=== PATIENT | female | born 1995 | race Caucasian/White ===

== ENCOUNTER 2021-01-02 03:25 | Inpatient (IN) ==
[~2021-01-02 03:25] MED LIST: Azithromycin 500 MG in 0.9 % Sodium Chloride 250 ML IVPB PRN; Famotidine 20 MG/2 ML VIAL IVP PRN; Lidocaine 1% 20 ML MDV INFILT PRN; Metoclopramide 10 MG/2 ML VIAL IVP PRN; Naloxone 0.4 MG/ML INJ IVP PRN
[2021-01-02] MEDS ORDERED: EPHEDrine 50 MG/ML VIAL IVP PRN ×2 (03:28→09:48)
[2021-01-02] MEDS ORDERED: Epidural Premix (fent/bupiv) 110 ML EP SCH ×2 (03:30→10:00)
[2021-01-02 05:18] LABS: Amphetamine Screen,Urine Negative ng/mL (Cutoff=1000); Barbiturate Screen,Urine Negative ng/mL (Cutoff=200); Benzodiazepines Screen,Urine Negative ng/mL (Cutoff=200); Cannabinoid Screen,Urine Negative ng/mL (Cutoff = 50); Cocaine Screen,Urine Negative ng/mL (Cutoff= 300); Opiate Screen,Urine Negative ng/mL (Cutoff=300); Phencyclidine Screen,Urine Negative ng/mL (Cutoff=25)
[2021-01-02 05:25] LABS: Basophils % 0.2 %; Mean Platelet Volume 13.2 fL (9.4-12.4); Monocytes % 9.2 %; Red Cell Distribution Width 14.3 % (11.5-14.5)
[2021-01-02 05:27] LABS: Eosinophils # 0.1 K/mcL (0.0-0.6); Eosinophils % 0.7 %; Hematocrit 39.8 % (35.3-44.9); Hemoglobin 12.8 g/dL (11.5-15.4); Immature Granulocytes % 0.7 % (0-4); Immature Platelets 14.7 % (1.1-6.1); Lymphocytes # 2.2 K/mcL (0.6-4.6); Lymphocytes % 18.1 %; Mean Corpuscular HGB Conc 32.2 g/dL (31.6-35.5); Mean Corpuscular Hemoglobin 28.3 pg (28.0-33.3); Mean Corpuscular Volume 88.1 fL (83.0-100.0); Monocytes # 1.1 K/mcL (0.0-1.3); Neutrophils # 8.7 K/mcL (1.6-8.9); Platelet Count 234 K/mcL (140-400); Red Blood Count 4.52 M/mcL (3.82-4.97); Segmented Neutrophils % 71.1 %; White Blood Count 12.2 K/mcL (4.3-11.1)
[2021-01-02] MEDS: Ringers Solution, Lactated 1,000 ML IVC SCH ×2 (05:54→09:54)
[2021-01-02] MEDS ORDERED: Oxytocin 20 units/ LR 1000 mL 20 UNIT/1,000 ML BAG IVC SCH ×2 (06:00→18:26)
[2021-01-02 06:11] LABS: Influenza A PCR Negative (Negative); Influenza B PCR Negative (Negative); Resp. Syncytial Virus PCR Negative (Negative)
[2021-01-02 06:20] LABS: Creatinine,Urine 57 mg/dL; Protein/Creatinine Ratio,Urine 0.75 mg/mg (0.00-0.20); SARS-CoV-2 by PCR (In House) Positive (Negative)
[2021-01-02 06:51] LABS: Alanine Aminotransferase 17 Units/L (7-52); Aspartate Amino Transferase 21 Units/L (13-39); BUN/Creatinine Ratio 17 (6-26); Blood Urea Nitrogen 12 mg/dL (6-20); Lactate Dehydrogenase 131 Units/L (140-271); Uric Acid 4.3 mg/dL (2.3-7.6); eGFR For African Americans > 60 (> 60); eGFR For Non-African Americans > 60 (> 60)
[2021-01-02] MEDS: *HR* Nalbuphine 10 MG/ML AMPUL IV PRN ×2 (07:51→09:54)
[2021-01-02] MEDS ORDERED: Ropivacaine/PF 0.2% 20 ML VIAL EP ONE (09:48)
[2021-01-02] MEDS ORDERED: *HR* FentaNYL (PF) 100 MCG/2 ML VIAL EP ONE (09:48)
[2021-01-02] MEDS ORDERED: Ropivacaine/PF 0.2% 20 ML VIAL ONE (10:26)
[2021-01-02] MEDS ORDERED: *HR* FentaNYL (PF) 100 MCG/2 ML VIAL ONE (10:26)
[2021-01-02] MEDS ORDERED: Ibuprofen 600 MG TABLET PO ONE (18:04)
[2021-01-02] MEDS ORDERED: Lanolin 7 G OINT...G. TP PRN (18:26)
[2021-01-02] MEDS ORDERED: Benzocaine/Menthol 56 GM AEROSOL SPRAY TP PRN (18:26)
[2021-01-02] MEDS ORDERED: Rho Immune Globulin 1,500 UNIT SYRINGE IM PRN (18:26)
[2021-01-02] MEDS ORDERED: Measles/Mumps/Rubella Vacc 0.5 ML VIAL SQ PRN (18:26)
[2021-01-02] MEDS ORDERED: Ondansetron ODT 4 MG TAB.RAPDIS SL PRN (18:26)
[2021-01-02] MEDS: Acetaminophen 325 MG TABLET PO SCH ×2 (18:37→21:17)
[2021-01-02 22:53] VITALS: O2SAT 99
[2021-01-02 23:04] LABS: Basophils % 0.1 %; Hematocrit 34.8 % (35.3-44.9); Hemoglobin 11.5 g/dL (11.5-15.4); Immature Granulocytes % 0.6 % (0-4); Lymphocytes # 2.6 K/mcL (0.6-4.6); Lymphocytes % 12.2 %; Mean Corpuscular Volume 87.9 fL (83.0-100.0); Mean Platelet Volume 12.8 fL (9.4-12.4); Monocytes # 1.6 K/mcL (0.0-1.3); Monocytes % 7.5 %; Platelet Count 206 K/mcL (140-400); Red Blood Count 3.96 M/mcL (3.82-4.97); Red Cell Distribution Width 14.2 % (11.5-14.5); Segmented Neutrophils % 79.6 %
[2021-01-02 23:06] LABS: White Blood Count 21.3 K/mcL (4.3-11.1)
[2021-01-03] MEDS: Ibuprofen 600 MG TABLET PO SCH ×3 (00:59→14:18)
[2021-01-03] MEDS: Acetaminophen 325 MG TABLET PO SCH ×2 (03:30→09:48)
[2021-01-03] MEDS ORDERED: Prenatal Vit/FA 1 EACH TABLET PO SCH (09:00)
[2021-01-03 18:16] VITALS: BP 115/78; PULSE 97; TEMP 97.9
== END 2021-01-03 18:22 | disposition home or self-care (01) | DRG 805 ==
LOC: 1NENULAB → 1NENUOBS 20:50
PROVIDERS: ADMIT Registered Nurse; ATTEND Registered Nurse